=== PATIENT | female | born 1985 | race African-American/Black ===

== ENCOUNTER 2017-02-09 22:15 | Inpatient (IN) | payer OTHER ==
[2017-02-09] MEDS: DEXTROSE 5%-LACTATED RINGERS 1,000 ML IV SCH (23:00)
[2017-02-09] MEDS ORDERED: ELECTROLYTE-148 SOLN 1,000 ML IV SCH (23:15)
[2017-02-09 23:29] LABS: BASOPHIL 0.1 % (0-2.0); EOSINOPHIL 0.6 % (0-4.5); MCH 26.5 pg (25.7-33.7); MCHC 32.8 g/dl (32.0-36.0); MEAN CELL VOLUME 80.9 fl (80-96); MEAN PLT VOLUME 9.7 fl (7.5-11.1); PLATELET COUNT 157 K/MM3 (134-434); RDW 15.9 % (11.6-15.6); WHITE BLOOD COUNT 10.8 K/mm3 (4.0-10.0)
--- NOTE | 2017-02-09 23:36 | HP ---
Past Medical History - Admission Chief Complaint: patient is admitteed for induction of labor History of Present Illness: 31 y/o female edc 02/16/17 at 39 weeks gestation for induction of labor her antipartumcare was unremarkable History Source: Patient Limitations to Obtaining History: No Limitations - Past Medical History Cardiovascular: No: AFIB, Aneurysm, Aortic Insufficiency, Aortic Stenosis, CAD, CHF, Deep Vein Thrombosis, HTN, Hyperlipdemia, MN, Mitral Insufficiency, Mitral Stenosis, Murmur, Pulmonary Hypertension, Other Pulmonary: No: Asthma, Bronchitis, Cancer, COPD, O2 Dependent, Pneumonia, Previously Intubated, Pulmonary Embolus, Pulmonary Fibrosis, Sleep Apnea, Other Gastrointestinal: No: Ascites, Cancer, Constipation, Crohn's Disease, Diverticulitis, Diverticulosis, Esophageal Varices, Gastritis, GERD, GI Bleed, Hemorrhoids, Hiatal Hernia, Inflamatory Bowel Disease, Irritable Bowel Disease, Pancreatitis, Peptic Ulcer Disease, Ulcerative Colitis, Other Hepatobiliary: No: Cirrhosis, Cholelithiasis, Cholecystitis, Choledocholithiasis , Hepatitis A, Hepatitis B, Hepatitis C, Other Renal/: No: Renal Failure, Renal Inusuff, BPH, Cancer, Hematuria, Hemodialysis , Neurogenic Bladder, Renal Calculi, UTI, Other Reproductive: No: Ectopic , Endometriosis, Fibroids, PID, Polycystic Ovary Syndrome, Postmenopausal, Other ...: 6 ...Para: 4 ...Term: 4 ...: 0 ...Spon : 0 ...Induced : 1 ...Multiple Gestation: 0 ... Weeks Gestation by Dates: 39 ...EDC by Luis Alberto: 02/16/17 Heme/Onc: Yes: Anemia Infectious Disease: No: AIDS, C-Diff, Herpes Zoster, HIV, MRSA, STD's, Tuberculosis, VREF, Other Psych: Yes: Depression. No: Addictions, Anxiety, Bipolar, Panic, Psychosis, Schizophrenia, Other Musculoskeletal: No: Bursitis, Chronic low back pain, Hemiparesis, Hemiplegia, Osteoarthritis, Paraplegia, Other Rheumatology: No: Fibromyalgia, Gout, Lupus, Rheumatoid Arthritis, Sarcoidosis, Vasculitis, Other ENT: No: Allergic Rhinitis, Sinusitis, Other Endocrine: No: Marathon's Disease, Nba's Disease, Diabetes Insipidus, Diabetes Mellitus, Hyperparathyroidism, Hyperthyroidism, Hypothyroidism, Osteopenia, SIADH, Other Dermatology: No: Basal Cell, Cellulitis, Eczema, Melanoma, Psoriasis, Squamous Cell, Other - Past Surgical History Past Surgical History: No: None, AAA Repair, AICD, Amputation, Appendectomy, Arthrosocopy, AV Fistula/Graft, Bariatric Surgery, Breast Biopsy, Bypass, CABG, Carotid Endarterectomy, Cataract Removal, Cholecystectomy, Colectomy, Colonoscopy, Colostomy, Craniotomy, , Cystectomy, Hernia Repair, Hysterectomy, Ileal Conduit, Ileosotomy, Joint Replacement, Kidney Transplant, Laminectomy, Liver Transplant, Mastectomy, Nephrectomy, Oopherectomy, Orchiectomy, Permanent Pacemaker, Prostatectomy, Splenectomy, Stent, Thoracotomy , TURP, Tonsillectomy, Tubal Ligation, Upper Endoscopy, Valve Replacement, Vasectomy, Vein Stripping/Ligation Hx Myomectomy: No Hx Transabdominal Cerclage: No - Smoking History Smoking history: Never smoked Have you smoked in the past 12 months: No Aproximately how many cigarettes per day: 20 - Alcohol/Substance Use Hx Alcohol Use: No - Social History History of Recent Travel: No Home Medications - Allergies Allergies/Adverse Reactions: Allergies Allergy/AdvReac Type Severity Reaction Status Date / Time Penicillins Allergy Mild Hives Verified 01/03/15 16:28 - Home Medications Home Medications: Ambulatory Orders Vit/Iron Fumarate/FA [ Tablet] 1 tab PO DAILY 01/03/15 Ferrous Sulfate [Feosol] 325 mg PO TID 12/07/16 Review of Systems - Review of Systems Constitutional: denies: No Symptoms, Chills, Diaphoresis, Fever, Lethargy, Loss of Appetite, Malaise, Night Sweats, Unintentional Wgt. Loss, Weakness, Other Eyes: denies: No Symptoms, Blind Spots, Blurred Vision, Double Vision, Eye Pain , Floaters, Photophobia, Recent Change in Vision, Other HENT: denies: No Symptoms, Difficult Swallowing, Ear Discharge, Ear Pain, Epistaxis, Gingival Bleeding, Hearing Loss, Mouth Swelling, Nasal Congestion, Ocular Prosthesis, Throat Pain, Toothache, Ringing in Ears, Other Neck: denies: No Symptoms, Decreased ROM, Lumps, Pain on Movement, Stiffness, Swollen Glands, Tenderness, Other Respiratory: denies: No Symptoms, Cough, Exercise Intolerance, Hemoptysis, Orthopnea, PND, Snoring, SOB, SOB on Exertion, Wheezing, Other Gastrointestinal: denies: No Symptoms, Abdominal Pain, Bloating, Constipation, Diarrhea, Dysphagia, Indigestion, Melena, Nausea, Rectal Bleeding, Vomiting, Vomiting Blood, Other Genitourinary: denies: No Symptoms, Burning, Discharge, Dysuria, Flank Pain, Frequency, Hematuria, Incontinence, Lesions, Menses, Pain, Testicular Mass, Testicular Pain, Testicular Swelling, Urgency, Vaginal Bleeding, Other Breasts: denies: No Symptoms Reported, See HPI, Breast Implants, Discharge from Nipple, Lumps, Pain, Skin Changes, Other Musculoskeletal: denies: No Symptoms, Back Pain, Crepitus, Decreased ROM, Extremity Pain, Joint Pain, Joint Swelling, Muscle Pain, Muscle Cramps, Muscle Weakness, Other Neurological: denies: No Symptoms, Change in LOC, Change in Speech, Confusion, Dizziness, Headache, Incoordination, Numbness, Parasthesia, Pre-Existing Deficit , Seizure, Syncope, Tremors, Unsteady Gait, Weakness, Other Endocrine: denies: No Symptoms, Excessive Sweating, Flushing, Increased Hunger, Increased Thirst, Intolerance to Cold, Intolerance to Heat, Unexplained Weight Gain, Unexplained Weight Loss, Other Hematology/Lymphatic: denies: No Symptoms, Easily Bruised, Excessive Bleeding, Swollen Glands, Other Psychiatric: denies: No Symptoms, Altered Sleep Pattern, Anxiety, Depression, Hallucinations, Panic, Paranoia, Suicidal, Other Physical Exam - Maternity Constitutional: Yes: Well Nourished, No Distress, Calm Eyes: Yes: WNL, Conjunctiva Clear HENT: Yes: WNL, Atraumatic, Normocephalic Neck: Yes: WNL, Supple Cardiovascular: Yes: WNL, Regular Rate and Rhythm Lungs: Normal air movement Breast(s): Yes: WNL - Abdominal Exam/OB Number of Fetuses: Single Presentation: Vertex Contractions: No Monitor Mode: External Heart Rate (range): 140bpm Heart Rate Location: [facility] Category: I Accelerations: Uniform Decelerations: None - Vaginal Exam/OB Vaginal Bleediing: No Speculum Exam: No Amniotic Membrane Status: Intact Presentation: Vertex/Position Station: -1 - Physical Exam Musculoskeletal: Yes: WNL Extremities: Yes: WNL Edema: No Integumentary: Yes: WNL Deep Tendon Reflex Grade: Normal +2 ...Motor Strength: WNL Psychiatric: Yes: WNL, Alert, Oriented Assessment/Plan iup at 39 weeks for induction of labor tracing is wnl
[2017-02-09 23:42] LABS: INR 0.98 (0.82-1.09); PROTHROMBIN TIME (PATIENT) 10.8 SEC (9.98-11.88)
[2017-02-09 23:45] LABS: ACTIVATED PTT 25.9 SECONDS (26.9-34.4)
[2017-02-09 23:50] LABS: CALCIUM 8.3 mg/dL (8.5-10.1); CREATININE 0.7 mg/dL (0.55-1.02)
[2017-02-10 00:58] VITALS: BMI 33.9
[2017-02-10] MEDS ORDERED: DINOPROSTONE 10 MG VAGINAL SUPPOSITORY VG ONE (01:30)
[2017-02-10] MEDS: DEXTROSE 5%-LACTATED RINGERS 1,000 ML IV SCH (05:00)
[2017-02-10] MEDS ORDERED: OXYTOCIN 15 UNITS/ LR 250 ML 250 ML IVPB SCH (11:45)
[2017-02-10] MEDS ORDERED: BISACODYL 10 MG SUPP.RECT RC PRN (14:46)
[2017-02-10] MEDS ORDERED: BENZOCAINE 28 GM HEMORRHOIDAL OINTMENT TP PRN (14:46)
[2017-02-10] MEDS ORDERED: METHYLERGONOVINE MALEATE 0.2 MG/1 ML AMP IM PRN (14:46)
[2017-02-10] MEDS ORDERED: WITCH HAZEL 50% (TUCKS) 40 PAD/JAR PAD TP PRN (14:46)
[2017-02-10] MEDS ORDERED: BENZOCAINE 20% 57 GM BOTTLE TP PRN (14:46)
--- NOTE | 2017-02-10 14:52 | PN ---
Delivery - Delivery Vaginal Delivery: Spontaneous Type of Anesthesia: Local, None Episiotomy/Laceration: None EBL (cc): 300 Delivery, Single - Stages of Labor Date 1st Stage Initiatied: 02/10/17 Time 1st Stage Initiated: 11:00 Date 2nd Stage Initiated: 02/10/17 Time 2nd Stage Initiated: 14:20 Date of Delivery: 02/10/17 Time of Delivery: 14:22 Time Placenta Delivered: 14:30 - Condition of Field Crew Chief/Hvac Refrigeration Technician Present: No Gender: Male Position: Left, OA Total Hours ROM (Hrs/Mins): 10M - 1 Minute Total Score: 9 5 Minutes Total Score: 9 - [place] Feeding Plan Initial Plan: Elected not to breastfeed exclusively throughout hospitalization Remarks - Remarks Remarks: Normal spontaneous vaginal delivery of a live infant boy over intact perineum. Nose / Oropharynx suctioned @ perineum. Cord clamped and cut. Placenta expelled spontaneously intact.
--- NOTE | 2017-02-10 14:55 | DS ---
Physical Exam-MILLING MACHINE TENDER Vital Signs: Vital Signs Temperature 97.7 F 02/10/17 11:00 Pulse Rate 75 02/10/17 12:00 Respiratory Rate 20 02/10/17 12:00 Blood Pressure 129/64 02/10/17 12:00 O2 Sat by Pulse Oximetry (%) Constitutional: Yes: Well Nourished Eyes: Yes: Conjunctiva Clear HENT: Yes: Atraumatic Neck: Yes: Supple, Trachea Midline Cardiovascular: Yes: Regular Rate and Rhythm Respiratory: Yes: Regular, CTA Bilaterally Gastrointestinal: Yes: Normal Bowel Sounds Vaginal Exam: Yes: Normal Cervix: Yes: Normal Uterus: Yes: Normal ....Post : Yes: Uterus firm Neurological: Yes: Alert, Oriented ...Motor Strength: WNL Psychiatric: Yes: Alert, Oriented Labs: CBC, BMP 02/09/17 23:10 02/09/17 23:10 Delivery - Delivery Vaginal Delivery: Spontaneous Type of Anesthesia: Local, None Episiotomy/Laceration: None EBL (cc): 300 Delivery, Single - Stages of Labor Date 1st Stage Initiatied: 02/10/17 Time 1st Stage Initiated: 11:00 Date 2nd Stage Initiated: 02/10/17 Time 2nd Stage Initiated: 14:20 Date of Delivery: 02/10/17 Time of Delivery: 14:22 Time Placenta Delivered: 14:30 - Condition of Catalyst Manufacturing Operator/Front End Engineer Present: No Gender: Male Position: Left, OA Total Hours ROM (Hrs/Mins): 10M - 1 Minute Total Score: 9 5 Minutes Total Score: 9 - Feeding Plan Initial Plan: Elected not to breastfeed exclusively throughout hospitalization Discharge Summary Reason For Visit: INDUCTION OF LABOR Labor Procedures: Principal: Normal spontaneous vaginal delivery Hospital Course: Routine care Condition: Good - Instructions Diet, Activity, Other Instructions: Regular diet No sexual intercourse, no douching x 6 weeks Disposition: HOME - Home Medications Comprehensive Discharge Medication List: Ambulatory Orders Vit/Iron Fumarate/FA [ Tablet] 1 tab PO DAILY 01/03/15 Ferrous Sulfate [Feosol] 325 mg PO TID 12/07/16
[2017-02-10] MEDS ORDERED: D5W-LR W/ 20 UNITS OXYTOCIN 1,000 ML IV SCH (15:00)
[2017-02-10] MEDS: IBUPROFEN 600 MG TABLET (FP) PO PRN (15:00)
[2017-02-10] MEDS: FERROUS SO4 325 MG TABLET (FP) PO SCH (16:43)
[2017-02-10] MEDS: POTASSIUM CHLORIDE TABS 20 MEQ TABLET.ER (FP) PO SCH (16:43)
[2017-02-11] MEDS: IBUPROFEN 600 MG TABLET (FP) PO PRN ×3 (00:26→20:45)
[2017-02-11] MEDS: ACETAMINOPHEN 325 MG TABLET (FP) PO PRN ×3 (00:26→20:44)
--- NOTE | 2017-02-11 07:00 | PN ---
Post Note - Post Date of Delivery: 02/10/17 Post Day: 1 Vital Signs: Vital Signs - 24 hr 02/10/17 02/10/17 02/10/17 08:00 09:00 10:00 Temperature 97.8 F 98.1 F Pulse Rate 87 86 89 Respiratory 20 20 20 Rate Blood Pressure 138/73 122/60 122/68 02/10/17 02/10/17 02/10/17 11:00 12:00 14:40 Temperature 97.7 F Pulse Rate 91 H 75 89 Respiratory 20 20 20 Rate Blood Pressure 115/64 129/64 138/87 02/10/17 02/10/17 02/10/17 14:55 15:00 15:25 Temperature Pulse Rate 86 84 74 Respiratory 20 20 20 Rate Blood Pressure 130/65 129/72 125/85 02/10/17 02/10/17 02/11/17 16:10 20:00 00:00 Temperature 97.8 F 98 F 98.1 F Pulse Rate 81 90 84 Respiratory 20 18 18 Rate Blood Pressure 129/73 127/75 119/72 02/11/17 04:00 Temperature 98.8 F Pulse Rate 83 Respiratory 18 Rate Blood Pressure 99/54 Labs: Laboratory Results - last 24 hr 02/09/17 23:10 RPR Titer Nonreactive - Subjective Subjective: No Complaints - Objective Afebrile: Yes Breast: Not engorged Abdomen: Soft, Non-tender Uterus: Fundus firm Vagina: Scant lochia Extremities: Non-tender - Assessment/Plan (1) Vaginal delivery Assessment: S/P Normal Plan: Routine Care
[2017-02-11 08:57] LABS: BASOPHIL 0.3 % (0-2.0); EOSINOPHIL 1.5 % (0-4.5); MCH 26.5 pg (25.7-33.7); MCHC 32.7 g/dl (32.0-36.0); MEAN CELL VOLUME 81.3 fl (80-96); MEAN PLT VOLUME 9.4 fl (7.5-11.1); NEUTROPHILS 68.9 % (42.8-82.8); PLATELET COUNT 123 K/MM3 (134-434); RDW 16.1 % (11.6-15.6); WHITE BLOOD COUNT 10.8 K/mm3 (4.0-10.0)
[2017-02-11] MEDS: POTASSIUM CHLORIDE TABS 20 MEQ TABLET.ER (FP) PO SCH (09:15)
[2017-02-11] MEDS: PRENATAL VITAMINS W/ FOLIC ACID TABLET (FP) PO SCH (09:15)
[2017-02-11] MEDS: FERROUS SO4 325 MG TABLET (FP) PO SCH ×3 (09:15→16:50)
[2017-02-11 20:36] VITALS: TEMP 98
[2017-02-11] MEDS ORDERED: SENNOSIDES/DOCUSATE COMBO (SENNA PLUS) TABLET (UD) PO PRN (22:00)
[2017-02-12] MEDS: FERROUS SO4 325 MG TABLET (FP) PO SCH ×2 (07:58→12:36)
[2017-02-12 08:21] VITALS: BP 127/79; PULSE 81
[2017-02-12] MEDS: PRENATAL VITAMINS W/ FOLIC ACID TABLET (FP) PO SCH (09:17)
[2017-02-12] MEDS: POTASSIUM CHLORIDE TABS 20 MEQ TABLET.ER (FP) PO SCH (09:25)
== END 2017-02-12 13:30 | disposition home or self-care (01) | DRG 560 ==
LOC: JLDR 22:15 → J3W 02-10 16:00
PROVIDERS: ADMIT Obstetrics & Gynecology; ATTEND Obstetrics & Gynecology
PROC: 10E0XZZ Delivery of Products of Conception, External Approach (ICD-10-PCS; principal; 2017-02-10)
DX: O80 Encounter for full-term uncomplicated delivery (principal); Z3A.39 39 weeks gestation of pregnancy; Z37.0 Single live birth
CPT/HCPCS: 36415; 59409; 80048; 85025; 85610; 85730; 86593; 86850; 86900; 86901

== ENCOUNTER 2017-12-18 06:30 | Day surgery (SDC) | payer OTHER ==
[2017-12-14 13:07] VITALS: BMI 31.8
--- NOTE | 2017-12-18 08:06 | OP ---
Operative Note - Note: Operative Date: 12/18/17 Pre-Operative Diagnosis: Cervical dysplasia Operation: Loop Electrode Excisional Procedure Findings: No lesions on cervix Post-Operative Diagnosis: Same as Pre-op Surgeon: Kanika Waller Anesthesia: General Specimens Removed: Portion of the cervix Estimated Blood Loss (mls): 700 Operative Report Dictated: Yes
--- NOTE | 2017-12-18 08:06 | HP ---
Admitting History and Physical - Admission Chief Complaint: Abnormal Pap smear History of Present Illness: 32 yo Para 5 with cervical dysplasia, is pre op fpr LEEP. History Source: Patient Limitations to Obtaining History: No Limitations - Past Medical History ...LMP: 12/02/17 ...: No Heme/Onc: Yes: Anemia Psych: Yes: Depression. No: Addictions, Anxiety, Bipolar, Panic, Psychosis, Schizophrenia, Other - Past Surgical History Past Surgical History: Yes: None - Smoking History Smoking history: Never smoked Have you smoked in the past 12 months: No Aproximately how many cigarettes per day: 20 - Alcohol/Substance Use Hx Alcohol Use: Yes (wine socially) - Social History History of Recent Travel: No Home Medications - Allergies Allergies/Adverse Reactions: Allergies Allergy/AdvReac Type Severity Reaction Status Date / Time Penicillins Allergy Mild Hives Verified 12/18/17 06:33 - Home Medications Home Medications: Ambulatory Orders NK [No Known Home Medication] 12/14/17 Family Disease History - Family Disease History Family History: Unremarkable Review of Systems - Review of Systems Constitutional: reports: No Symptoms Eyes: reports: No Symptoms HENT: reports: No Symptoms Neck: reports: No Symptoms Cardiovascular: reports: No Symptoms Respiratory: reports: No Symptoms Gastrointestinal: reports: No Symptoms Genitourinary: reports: No Symptoms Breasts: reports: No Symptoms Reported Musculoskeletal: reports: No Symptoms Integumentary: reports: No Symptoms Neurological: reports: No Symptoms Endocrine: reports: No Symptoms Hematology/Lymphatic: reports: No Symptoms Psychiatric: reports: No Symptoms Pain Intensity: 0 Physical Examination Vital Signs: Vital Signs Temperature 99.0 F 12/18/17 06:48 Pulse Rate 80 12/18/17 06:48 Respiratory Rate 18 12/18/17 06:48 Blood Pressure 127/83 12/18/17 06:48 O2 Sat by Pulse Oximetry (%) 100 12/18/17 06:49 Constitutional: Yes: Well Nourished Eyes: Yes: Conjunctiva Clear HENT: Yes: Atraumatic Neck: Yes: Supple Cardiovascular: Yes: Regular Rate and Rhythm Respiratory: Yes: Regular, CTA Bilaterally Gastrointestinal: Yes: Normal Bowel Sounds Musculoskeletal: Yes: WNL Neurological: Yes: Alert, Oriented ...Motor Strength: WNL Psychiatric: Yes: Alert, Oriented Problem List - Problems (1) Cervical dysplasia Code(s): N87.9 - DYSPLASIA OF CERVIX UTERI, UNSPECIFIED Assessment/Plan Cervical dysplasia Pre op for LEEP Consent signed Anesthesia to see patient
[2017-12-18] MEDS ORDERED: oxyCODONE HCL 5 MG TABLET PO PRN (09:22)
[2017-12-18] MEDS ORDERED: PROMETHAZINE HCL 25 MG/1 ML VIAL IVPUSH PRN (09:22)
[2017-12-18] MEDS ORDERED: ONDANSETRON 4 MG/2 ML VIAL IVPUSH PRN (09:22)
[2017-12-18] MEDS ORDERED: LACTATED RINGERS SOLUTION 1,000 ML IV SCH (09:30)
[2017-12-18 10:34] VITALS: TEMP 98.2
--- NOTE | 2017-12-18 11:08 | OP ---
DATE OF OPERATION: 12/18/2017 PREOPERATIVE DIAGNOSIS: Cervical dysplasia. POSTOPERATIVE DIAGNOSIS: Cervical dysplasia. PROCEDURE: Loop electrode excisional procedure. SURGEON: Kanika Waller MD ANESTHESIA: General by LMA. COMPLICATIONS: None. ESTIMATED BLOOD LOSS: 700 mL. DESCRIPTION OF PROCEDURE: Patient was taken to the operating room, where general anesthesia was administered. Patient was then placed in lithotomy position. She was then prepped and draped in proper sterile fashion. The perineum was prepped with 3% acetic acid. A speculum was placed in the vagina. A suture was placed on the anterior lip of the cervix as a marker. Then, the vagina and cervix were painted with Lugol solution. The loop electrode was used to excise portion of the cervix, leaving the suture at 12 o 'clock position. There was significant amount of bleeding. Hemostasis obtained using monsel's solution. Few sutures were placed over the cervix to control bleeding. When finished, the instruments were removed. The patient was taken out of lithotomy position. She was taken to PACU in stable condition. PATHOLOGY: Portion of the cervix. Krystal [id number] MTDD
[2017-12-18 12:38] VITALS: BP 118/69; PULSE 78
--- NOTE | 2017-12-19 14:22 | PATH ---
Surgical Pathology Report Patient Name: ISELA ANTHONY [facility]. Rec. #: [id number] /Age/Gender: 1985 (Age: 32) / F Account: [id number] Location: [facility] SUR[facility]ICAL Taken: 12/18/2017 Received: 12/18/2017 Reported: 12/19/2017 Physicians: Kanika Waller M.D. Specimen(s) Received PORTION OF CERVICAL STITCH AT 12 OCLOCK Clinical History Cervical dysplasia Final Diagnosis CERVIX, LOOP ELECTROSURGICAL EXCISION PROCEDURE (LEEP): CERVICAL SQUAMOUS AND ENDOCERVICAL MUCOSA WITH HIGH GRADE SQUAMOUS INTRAEPITHELIAL LESION (CERVICAL INTRAEPITHELIAL NEOPLASIA 3 (BRIONNA 3) INVOLVING QUADRANTS 12:00-3, 6:00-9, AND 9:00-12. AREAS OF LOW GRADE SQUAMOUS INTRAEPITHELIAL LESION ALSO PRESENT. SURGICAL RESECTION MARGINS: NEGATIVE FOR HIGH GRADE DYSPLASIA. TRANSFORMATION ZONE: PRESENT. CHANGES OF PRIOR BIOPSY PRESENT. Electronically Signed Patience Matias M.D. Gross Description Received in formalin labelled "portion of cervix stitch michelle 12:00" is a 3.2 x 2.5 x 0.7 cm portion of kohler mucosa consistent with a cervical cone excision which has been previously opened. A suture dixon the 12 o'clock position. The margin is inked. The specimen is sectioned and totally submitted in 8 cassettes as follows: 1 and 2-12:00 through 3:00; 3 and 4-3:00 through 6:00; 5 and 6-6:00 through 9:00; 7 and 8-9:00 through 12:00. [facility]/12/18/2017 [facility]/12/18/2017
== END 2017-12-18 13:15 | disposition home or self-care (01) ==
LOC: JASU-SURG 06:30
PROVIDERS: ATTEND Obstetrics & Gynecology
PROC: 0UBC7ZX Excision of Cervix, Via Natural or Artificial Opening, Diagnostic (ICD-10-PCS; principal; 2017-12-18 08:00)
DX: D06.9 Carcinoma in situ of cervix, unspecified (principal)
CPT/HCPCS: 86850; 86900; 86901; 86922; 88307-TC; 94760

== ENCOUNTER 2017-12-18 14:44 | Emergency (ER) | payer OTHER ==
[2017-12-18 14:49] VITALS: TEMP 97.6; BMI 31.8
--- NOTE | 2017-12-18 14:49 | PDOC ---
Rapid Medical Evaluation Chief Complaint: Vaginal Bleeding Medical Evaluation: Allergies Allergy/AdvReac Type Severity Reaction Status Date / Time Penicillins Allergy Mild Hives Verified 12/18/17 14:45 12/18/17 14:45 I have performed a brief in-person evaluation of this patient. The patient presents with a chief complaint of: significant bleeding s/p LEEP this am, "went through all my clothes and all over the bathroom floor", "I feel dizzy, lightheaded", +palpitations, MD Waller surgeon Pertinent physical exam findings: unable to sit due to pain, diaphoretic, pale I have ordered the following: CBC, CMP, T&S, labs The patient will proceed to the ED for further evaluation. Discharge Disposition - Diagnosis Postoperative vaginal bleeding - Referrals Referrals: Dany Reece [Primary Care Provider] - - Patient Instructions - Post Discharge Activity
[2017-12-18 15:12] LABS: BASO % 0.2 % (0-2.0); HEMOGLOBIN 10.8 GM/dL (10.7-15.3); MCH 25.6 pg (25.7-33.7); MCHC 32.7 g/dl (32.0-36.0); MEAN CELL VOLUME 78.2 fl (80-96); MEAN PLT VOLUME 8.9 fl (7.5-11.1); MONO % 3.2 % (3.8-10.2); NEUT % 76.6 % (42.8-82.8); PLATELET COUNT 229 K/MM3 (134-434); RBC 4.22 M/mm3 (3.60-5.2); RDW 14.7 % (11.6-15.6); WHITE BLOOD COUNT 4.8 K/mm3 (4.0-10.0)
[2017-12-18 15:35] LABS: ALBUMIN 3.9 g/dl (3.4-5.0); ALK PHOS 98 U/L (45-117); ANION GAP 9 (8-16); BILIRUBIN,TOTAL 0.3 mg/dL (0.2-1.0); BLOOD UREA NITROGEN 10 mg/dL (7-18); CALCIUM 8.5 mg/dL (8.5-10.1); CHLORIDE 103 mmol/L (98-107); CO2 23 mmol/L (21-32); CREATININE 0.9 mg/dL (0.55-1.02); GLUCOSE,RANDOM 174 mg/dL (74-106); POTASSIUM 4.4 mmol/L (3.5-5.1); SGOT/AST 8 U/L (15-37); SGPT/ALT 15 U/L (12-78); SODIUM 135 mmol/L (136-145); TOT PROT 7.2 g/dl (6.4-8.2)
--- NOTE | 2017-12-18 15:36 | PDOC ---
Attending Attestation - Resident Resident Name: Ana MaríaTino - ED Attending Attestation I have performed the following: I have examined & evaluated the patient, The case was reviewed & discussed with the resident, I agree w/resident's findings & plan, Exceptions are as noted - HPI HPI: 12/18/17 15:29 32y F hx of cervical dysplasia s/p LEEP today presents with increased lower eabdominal pain and bleeding, soaking through her pads. Pt endorses feeling lightheaded, fatigued, dneies any cp vtitals reveal tachycardia to 125 with normal BP on arrival pts exam pale cardiac rrr, no mrg pulm: cta b/l abd soft nontender pelvic exam reeals some blood in the vault, oozing. not a signficant bleed plan to obtain cbc will dw dr. claros regarding disposition - Physicial Exam PE: 12/20/17 11:39 see above - Medical Decision Making 12/20/17 11:39 see above
[2017-12-18 15:52] LABS: INR 1.04 (0.82-1.09); PROTHROMBIN TIME (PATIENT) 11.8 SEC (9.98-11.88)
--- NOTE | 2017-12-18 16:27 | PDOC ---
History of Present Illness - General Chief Complaint: Vaginal Bleeding Stated Complaint: POST OP SURGERY PAIN Time Seen by Provider: 12/18/17 14:59 - History of Present Illness Initial Comments: 12/18/17 19:14 The patient is a 32 year old female who presents for evaluation of vaginal bleeding following a leep procedure earlier today. The patient reports that she underwent a leep procedure performed by Dr. Waller today and since being at home, she had experienced significant vaginal bleeding soaking through her pad and clothes. She noted passing a large clot in the bathroom with bleeding prompting her presentation to the ED for evaluation. She also endorses some crampy lower abdominal pain as well. She notes some lightheadedness and fatigue , but otherwise denies fevers, chills, SOB, chest pain, nausea, vomiting, or changes with urination or bowel movements. Past History - Past Medical History Allergies/Adverse Reactions: Allergies Allergy/AdvReac Type Severity Reaction Status Date / Time Penicillins Allergy Mild Hives Verified 12/18/17 14:45 Home Medications: Ambulatory Orders NK [No Known Home Medication] 12/14/17 Anemia: No Asthma: No Cancer: No Cardiac Disorders: No CVA: No COPD: No CHF: No Dementia: No Diabetes: No GI Disorders: No Disorders: No HTN: No Hypercholesterolemia: No Kidney Stones: Yes Liver Disease: No Seizures: No Thyroid Disease: No - Suicide/Smoking/Psychosocial Hx Smoking Status: Yes Smoking History: Never smoked Have you smoked in the past 12 months: No Number of Cigarettes Smoked Daily: 20 Information on smoking cessation initiated: No Hx Alcohol Use: Yes (wine socially) Drug/Substance Use Hx: No Substance Use Type: None Hx Substance Use Treatment: No Review of Systems - Review of Systems Comments:: 12/18/17 19:17 Constitutional: Fatigue. No fevers, chills, malaise HEENT: No Rhinorrhea, nasal congestion, visual changes Cardiovascular: Lightheadedness. No chest pain, syncope, palpitations, Respiratory: No Cough, SOB, Hemoptysis, Gastrointestinal: Lower abdominal pain. No Nausea, Vomiting, Constipation, Diarrhea, Melena Genitourinary: Vaginal bleeding. No Dysuria, Frequency, Urgency, Hesitancy, Hematuria, Flank pain Musculoskeletal: No Myalgia, arthralgia Skin: No rashes, itching, bruising, pallor Neurologic: No Headache, Dizziness, Numbness, Weakness, or Tingling Psychiatric: No Hallucinations. No SI or HI *Physical Exam - Vital Signs Last Vital Signs Temp Pulse Resp BP Pulse Ox 97.6 F 125 H 18 134/85 100 12/18/17 14:45 12/18/17 14:45 12/18/17 14:45 12/18/17 14:45 12/18/17 14:45 - Physical Exam Comments: 12/18/17 19:18 General Appearance: Nourished. No Apparent Distress HEENT: EOMI, [place]. No Pharyngeal Erythema, Tonsillar Exudate, Tonsillar Erythema Neck: No Cervical Lymphadenopathy Respiratory/Chest: Lungs Clear, Normal Breath Sounds. No Crackles, Rales, Rhonchi, Wheezing Cardiovascular: Regular Rhythm, Regular Rate. No Murmur, Gallops, Rubs Gastrointestinal/Abdominal: Normal Bowel Sounds, Soft. Mild diffuse lower abdominal tenderness to palpation. No Guarding, Rebound, Vaginal Exam: Normal external exam. Two large clots noted on pelvic exam with blood in the vaginal vault. No brisk bleeding noted on exam. Closed cervical os Musculoskeletal: No CVA Tenderness Extremity: Normal Capillary Refill Integumentary: Normal Color, Dry, Warm Neurologic: Fully Oriented, Alert, Normal Mood/Affect, Normal Response, ED Treatment Course - LABORATORY CBC & Chemistry Diagram: 12/18/17 15:04 12/18/17 15:07 - ADDITIONAL ORDERS Additional order review: Laboratory Results 12/18/17 12/18/17 12/18/17 15:07 15:07 15:04 PT with INR 11.80 INR 1.04 Sodium 135 L Potassium 4.4 Chloride 103 Carbon Dioxide 23 Anion Gap 9 BUN 10 Creatinine 0.9 Creat Clearance w eGFR > 60 Random Glucose 174 H Calcium 8.5 Total Bilirubin 0.3 AST 8 L ALT 15 Alkaline Phosphatase 98 Total Protein 7.2 Albumin 3.9 Blood Type O POSITIVE Antibody Screen Negative 12/18/17 15:04 RBC 4.22 MCV 78.2 L MCHC 32.7 RDW 14.7 MPV 8.9 Neutrophils % 76.6 D Lymphocytes % 20.0 D Monocytes % 3.2 L Eosinophils % 0.0 D Basophils % 0.2 Medical Decision Making - Medical Decision Making 12/18/17 19:20 The patient is a 32 year old female who presents for evaluation of vaginal bleeding following a leep procedure earlier today. Given the patient's physical exam and history, we will obtain a cbc, cmp to evaluate for anemia or any other metabolic derangement. The patient appears stable on exam currently. We will contact Dr. Waller to obtain her consultation. We will continue to monitor and reassess. 12/18/17 19:21 CBC, cmp are unremarkable. We discussed the case with Dr. Waller who will see the patient in clinic on . We are comfortable discharging the patient home at this time with follow up with Dr. Waller and have discussed return precautions with the patient. She voiced understanding and is agreeable with the plan. *DC/Admit/Observation/Transfer Diagnosis at time of Disposition: Postoperative vaginal bleeding - Discharge Dispostion Disposition: HOME Condition at time of disposition: Good Admit: No - Referrals Referrals: Dany Reece [Primary Care Provider] - Kanika Waller MD [Staff Physician] - - Patient Instructions Printed Discharge Instructions: DI for Vaginal Bleeding Additional Instructions: Please return to the ER if you experience concerning or worsening symptoms including worsening bleeding, pain, vomiting, or fevers. Your lab results were normal here in the ER. We discussed your case with Dr. Waller who will see you in her clinic on 12/20/17 at her [facility] office. Please keep that appointment and you may call for any concerns that you may have. - Post Discharge Activity
[2017-12-18 18:59] VITALS: BP 114/68; PULSE 72
== END 2017-12-18 19:44 | disposition home or self-care (01) ==
LOC: JER 14:44
DX: N99.820 Postprocedural hemorrhage of a genitourinary system organ or structure following a genitourinary system procedure (principal)
CPT/HCPCS: 36415; 80053; 85025; 85610; 86850; 86900; 86901; 99282-25

== ENCOUNTER 2019-12-29 18:14 | Emergency (ER) | payer OTHER ==
[2019-12-29 18:18] VITALS: BP 154/89; PULSE 91; TEMP 98; BMI 30.7
--- NOTE | 2019-12-29 18:18 | PDOC ---
Rapid Medical Evaluation Medical Evaluation: Allergies Allergy/AdvReac Type Severity Reaction Status Date / Time Penicillins Allergy Mild Hives Verified 12/18/17 14:45 I have performed a brief in-person evaluation of this patient. The patient presents with a chief complaint of: hematuria from today; denies fever, dysuria; has mild lower abd/back pain; states it is not vaginal bleeding Pertinent physical exam findings: In NAD I have ordered the following: urine The patient will proceed to the ED for further evaluation. 12/29/19 18:17
--- NOTE | 2019-12-29 20:16 | PDOC ---
History of Present Illness - General Chief Complaint: Hematuria Stated Complaint: BLOOD IN URINE Time Seen by Provider: 12/29/19 18:16 - History of Present Illness Initial Comments: 12/29/19 20:14 34-year-old female without comorbidities presents for urinary frequency urgency and one episode of hematuria which started today. No systemic symptoms no associated pain or dysuria Past History - Past Medical History Allergies/Adverse Reactions: Allergies Allergy/AdvReac Type Severity Reaction Status Date / Time Penicillins Allergy Mild Hives Verified 12/29/19 18:18 Home Medications: Ambulatory Orders NK [No Known Home Medication] 12/14/17 Anemia: No Asthma: No Cancer: No Cardiac Disorders: No CVA: No COPD: No CHF: No Dementia: No Diabetes: No GI Disorders: No Disorders: No HTN: No Hypercholesterolemia: No Kidney Stones: Yes Liver Disease: No Seizures: No Thyroid Disease: No - Psycho Social/Smoking Cessation Hx Smoking Status: Yes Smoking History: Never smoked Have you smoked in the past 12 months: No Number of Cigarettes Smoked Daily: 20 Hx Alcohol Use: Yes (wine socially) Drug/Substance Use Hx: No Substance Use Type: None Hx Substance Use Treatment: No Review of Systems - Review of Systems Constitutional: No: Chills, Diaphoresis, Fever, Malaise, Night Sweats ABD/GI: No: Constipated, Diarrhea, Nausea, Vomiting : Yes: Frequency, Hematuria. No: Burning, Dysuria, Flank Pain, Incontinence, Pain, Urgency Musculoskeletal: No: Back Pain *Physical Exam - Vital Signs Last Vital Signs Temp Pulse Resp BP Pulse Ox 98 F 91 H 18 154/89 98 12/29/19 18:15 12/29/19 18:15 12/29/19 18:15 12/29/19 18:15 12/29/19 18:15 - Physical Exam 12/29/19 20:15 GENERAL: The patient is awake, alert, and fully oriented, in no acute distress. HEAD: Normal with no signs of trauma. NEUROLOGICAL: Cranial nerves II through XII grossly intact. PSYCH: Normal mood, normal affect. SKIN: Warm, Dry, normal turgor, no rashes or lesions noted. Medical Decision Making - Medical Decision Making 12/29/19 22:35 No stone. Follow-up with urology for hematuria. Patient advised of cyst on CAT scan and the need for follow-up Discharge - Discharge Information Problems reviewed: Yes Clinical Impression/Diagnosis: Hematuria Condition: Stable Disposition: HOME - Admission No - Follow up/Referral Referrals: Dany Reece [Primary Care Provider] - Salvador Hernandez MD [Staff Physician] - - Patient Discharge Instructions Additional Instructions: Please return to the emergency room for worsening symptoms or if symptoms do not resolve within the next day or 2. Without fail follow-up with urology in the next 1 to 2 days. It is important for you to follow-up because of a finding of a cyst on your CAT scan. You do not appear to have a urinary tract infection today however a culture was sent on your urine and should you require antibiotics we will call you - Post Discharge Activity
[2019-12-29 20:27] LABS: EPI CELLS 8.8 /HPF (0-5/HPF); HYALINE CASTS 3 /lpf (0-8); PH,URINE 5.5 (5.0-8.0); URINE APPEARANCE CLOUDY; URINE BACTERIA 161.4 /hpf (NEGATIVE); URINE BILIRUBIN NEGATIVE (NEGATIVE); URINE COLOR YELLOW; URINE GLUCOSE (UA) NEGATIVE (NEGATIVE); URINE KETONE NEGATIVE (NEGATIVE); URINE LEUK ESTERASE NEGATIVE (NEGATIVE); URINE NITRITE NEGATIVE (NEGATIVE); URINE PROTEIN TRACE (NEGATIVE); URINE RBC 231 /hpf (0-4); URINE UROBILINOGEN 0.2 mg/dL (0.2-1.0); URINE WBC 8 /hpf (0-5)
== END 2019-12-29 22:45 | disposition home or self-care (01) ==
LOC: JERFT 18:14
DX: R31.9 Hematuria, unspecified (principal); Z88.0 Allergy status to penicillin
CPT/HCPCS: 74176-TC; 81003; 84703; 87086; 99284-25

== ENCOUNTER 2021-01-13 12:59 | Emergency (ER) | payer OTHER ==
[2021-01-13 13:09] VITALS: BP 112/75; PULSE 69; TEMP 98.6; BMI 31.1
[2021-01-13] MEDS ORDERED: KETOROLAC TROMETHAMINE 30 MG/1 ML VIAL IVPUSH ONE (14:02)
[2021-01-13] MEDS ORDERED: METOCLOPRAMIDE HCL INJECTION 10 MG/2 ML VIAL IVPUSH ONE (14:03)
[2021-01-13] MEDS ORDERED: SODIUM CHLORIDE 0.9% 500 ML INFUS.BAG IV ONE (14:03)
[2021-01-13] MEDS ORDERED: METOCLOPRAMIDE HCL INJECTION 10 MG/2 ML VIAL ONE (14:39)
[2021-01-13] MEDS ORDERED: KETOROLAC TROMETHAMINE 30 MG/1 ML VIAL ONE (14:39)
[2021-01-13 14:58] LABS: BASO % 0.3 % (0-2.0); EOS % 0.7 % (0-4.5); HEMATOCRIT 37.2 % (32.4-45.2); HEMOGLOBIN 11.9 GM/dL (10.7-15.3); LYMPH % 26.8 % (8-40); MCH 25.5 pg (25.7-33.7); MEAN CELL VOLUME 79.8 fl (80-96); MEAN PLT VOLUME 9.1 fl (7.5-11.1); MONO % 6.9 % (3.8-10.2); NEUT % 65.3 % (42.8-82.8); PLATELET COUNT 237 K/MM3 (134-434); RBC 4.67 M/mm3 (3.60-5.2); RDW 15.3 % (11.6-15.6); WHITE BLOOD COUNT 8.6 K/mm3 (4.0-10.0)
[2021-01-13 15:23] LABS: POTASSIUM 4.1 mmol/L (3.5-5.1)
[2021-01-13 15:25] LABS: BLOOD UREA NITROGEN 13.5 mg/dL (7-18); CALCIUM 9.6 mg/dL (8.5-10.1)
[2021-01-13 15:28] LABS: CREATININE 0.7 mg/dL (0.55-1.3)
[2021-01-13 15:30] LABS: BILIRUBIN,TOTAL 0.5 mg/dL (0.2-1); TOT PROT 7.4 g/dl (6.4-8.2)
== END 2021-01-13 16:10 | disposition home or self-care (01) ==
LOC: JER 12:59
PROC: 3E0333Z Introduction of Anti-inflammatory into Peripheral Vein, Percutaneous Approach (ICD-10-PCS; principal; 2021-01-13)
PROC: 3E033GC Introduction of Other Therapeutic Substance into Peripheral Vein, Percutaneous Approach (ICD-10-PCS; 2021-01-13)
DX: R51.9 Headache, unspecified (principal)
CPT/HCPCS: 36415; 70450-TC; 80053; 85025; 99284-25

== ENCOUNTER 2022-07-19 14:58 | Emergency (ER) | payer OTHER ==
[2022-07-19 15:53] VITALS: BP 126/77; PULSE 94; RESP 17; TEMP 98.7; BMI 30.9
[2022-07-19] MEDS ORDERED: SODIUM CHLORIDE 0.9% 500 ML INFUS.BAG IV ONE (17:32)
[2022-07-19] MEDS ORDERED: ACETAMINOPHEN 1000 MG/100 ML BAG IVPB ONE (17:32)
[2022-07-19] MEDS ORDERED: DEXAMETHASONE SOD PHOSPHATE 10 MG/1 ML VIAL IVPUSH ONE (17:32)
[2022-07-19] MEDS ORDERED: ACETAMINOPHEN INJECTION 100 ML IVPB ONE (17:33)
[2022-07-19] MEDS ORDERED: DEXAMETHASONE SOD PHOSPHATE 10 MG/1 ML VIAL ONE (17:34)
[2022-07-19] MEDS ORDERED: METOCLOPRAMIDE HCL INJECTION 10 MG/2 ML VIAL IVPUSH ONE (17:37)
[2022-07-19] MEDS ORDERED: METOCLOPRAMIDE HCL INJECTION 10 MG/2 ML VIAL ONE (18:16)
[2022-07-19 18:59] LABS: BASO % 0.5 % (0-2.0); EOS % 1.2 % (0-4.5); HEMATOCRIT 35.8 % (32.4-45.2); HEMOGLOBIN 11.8 GM/dL (10.7-15.3); LYMPH % 22.8 % (8-40); MCH 26.2 pg (25.7-33.7); MCHC 33.1 g/dl (32.0-36.0); MEAN CELL VOLUME 79.1 fl (80-96); MONO % 10.7 % (3.8-10.2); NEUT % 64.8 % (42.8-82.8); PLATELET COUNT 239 10^3/uL (134-434); RBC 4.52 M/mm3 (3.60-5.2); RDW 15.1 % (11.6-15.6); WHITE BLOOD COUNT 6.1 K/mm3 (4.0-10.0)
[2022-07-19 19:04] LABS: CHLORIDE 106 mmol/L (98-107); SODIUM 140 mmol/L (136-145)
[2022-07-19 19:06] LABS: CALCIUM 8.9 mg/dL (8.5-10.1)
[2022-07-19 19:07] LABS: ALBUMIN 3.8 g/dl (3.4-5.0); ANION GAP 8 MMOL/L (8-16); BLOOD UREA NITROGEN 6.2 mg/dL (7-18); CO2 26 mmol/L (21-32); GLUCOSE,RANDOM 83 mg/dL (74-106)
[2022-07-19 19:10] LABS: CREATININE 0.7 mg/dL (0.55-1.3); SGOT/AST 13 U/L (15-37); SGPT/ALT 18 U/L (13-61)
[2022-07-19 19:11] LABS: TOT PROT 7.4 g/dl (6.4-8.2)
[2022-07-19 19:12] LABS: BILIRUBIN,TOTAL 0.3 mg/dL (0.2-1)
[2022-07-19 19:13] LABS: ALK PHOS 104 U/L (45-117)
== END 2022-07-19 20:40 | disposition home or self-care (01) ==
LOC: JER 14:58
PROC: 3E0333Z Introduction of Anti-inflammatory into Peripheral Vein, Percutaneous Approach (ICD-10-PCS; principal; 2022-07-19)
PROC: 3E0333Z Introduction of Anti-inflammatory into Peripheral Vein, Percutaneous Approach (ICD-10-PCS; 2022-07-19)
PROC: 3E033GC Introduction of Other Therapeutic Substance into Peripheral Vein, Percutaneous Approach (ICD-10-PCS; 2022-07-19)
PROC: 3E033GC Introduction of Other Therapeutic Substance into Peripheral Vein, Percutaneous Approach (ICD-10-PCS; 2022-07-19)
DX: R00.2 Palpitations (principal)
CPT/HCPCS: 36415; 71046-TC-FY; 80053; 84484; 84703; 85025; 93005; 93010; 99285-25; J1100

== ENCOUNTER 2023-03-17 23:06 | Emergency (ER) | payer OTHER ==
[2023-03-17 23:23] VITALS: BP 124/85; PULSE 67; RESP 18; TEMP 98; BMI 29.8
== END 2023-03-18 01:42 | disposition home or self-care (01) ==
LOC: JER 23:06
DX: R05.9 Cough, unspecified (principal); R09.89 Other specified symptoms and signs involving the circulatory and respiratory systems; J06.9 Acute upper respiratory infection, unspecified; Z20.822 Contact with and (suspected) exposure to COVID-19
CPT/HCPCS: 0241U-QW; 87070; 87651; 99283-25

== ENCOUNTER 2023-04-15 01:31 | Emergency (ER) | payer OTHER ==
[2023-04-15 01:43] VITALS: RESP 18; BMI 30.7
[2023-04-15 03:24] LABS: BASO % 0.2 % (0-2.0); EOS % 0.5 % (0-4.5); HEMATOCRIT 35.8 % (32.4-45.2); HEMOGLOBIN 11.5 GM/dL (10.7-15.3); LYMPH % 11.5 % (8-40); MCH 24.9 pg (25.7-33.7); MCHC 32.1 g/dl (32.0-36.0); MEAN CELL VOLUME 77.7 fl (80-96); MEAN PLT VOLUME 8.8 fl (7.5-11.1); MONO % 6.9 % (3.8-10.2); NEUT % 80.9 % (42.8-82.8); PLATELET COUNT 223 10^3/uL (134-434); RBC 4.61 M/mm3 (3.60-5.2); WHITE BLOOD COUNT 15.8 K/mm3 (4.0-10.0)
[2023-04-15 03:36] LABS: INR 1.03 (0.83-1.09)
[2023-04-15 03:38] LABS: POTASSIUM 3.7 mmol/L (3.5-5.1)
[2023-04-15 03:39] LABS: ACTIVATED PTT 29.2 SECONDS (25.2-36.5); ALBUMIN 3.8 g/dl (3.4-5.0); BLOOD UREA NITROGEN 13.5 mg/dL (7-18); CALCIUM 9.3 mg/dL (8.5-10.1)
[2023-04-15 03:42] LABS: CREATININE 0.9 mg/dL (0.55-1.3)
[2023-04-15 03:44] LABS: BILIRUBIN,TOTAL 0.5 mg/dL (0.2-1)
[2023-04-15] MEDS ORDERED: ACETAMINOPHEN 1000 MG/100 ML BAG IVPB ONE (04:48)
[2023-04-15] MEDS ORDERED: ACETAMINOPHEN INJECTION 100 ML IVPB ONE (04:49)
[2023-04-15 05:50] VITALS: BP 107/74; PULSE 68; TEMP 98.2
[2023-04-15 06:33] LABS: THROAT:GRP A STREP NOT DETECTED (NOTDETECTED)
== END 2023-04-15 06:00 | disposition home or self-care (01) ==
LOC: JER 01:31
PROC: 3E033NZ Introduction of Analgesics, Hypnotics, Sedatives into Peripheral Vein, Percutaneous Approach (ICD-10-PCS; principal; 2023-04-15)
DX: R07.9 Chest pain, unspecified (principal); R07.0 Pain in throat; Z20.822 Contact with and (suspected) exposure to COVID-19
CPT/HCPCS: 0241U-QW; 36415; 71046-TC-FY; 80053; 84484; 84703; 85025; 85610; 85730; 87070; 87651; 93005; 93010; 99285-25

== ENCOUNTER 2024-01-07 17:24 | Emergency (ER) | payer OTHER ==
[2024-01-07 17:35] VITALS: BP 137/89; PULSE 66; RESP 18; TEMP 98.8; BMI 30.3
[2024-01-07] MEDS ORDERED: ALBUTEROL SO4 2.5/IPRATROPIUM 0.5 INH SOL 3 ML VIAL.NEB. NEB ONE ×2 (18:10→19:35)
[2024-01-07] MEDS: ALBUTEROL SO4 2.5/IPRATROPIUM 0.5 INH SOL 3 ML VIAL.NEB. NEB ONE ×2 (18:22→19:39)
[2024-01-07] MEDS ORDERED: predniSONE 20 MG TABLET (UD) ONE (19:34)
[2024-01-07] MEDS ORDERED: FAMOTIDINE 20 MG TABLET ONE (19:35)
[2024-01-07] MEDS: predniSONE 20 MG TABLET (UD) PO ONE (19:39)
[2024-01-07] MEDS: FAMOTIDINE 20 MG TABLET PO ONE (19:39)
== END 2024-01-07 20:04 | disposition home or self-care (01) ==
LOC: JERFT 17:24
PROC: 3E0F7GC Introduction of Other Therapeutic Substance into Respiratory Tract, Via Natural or Artificial Opening (ICD-10-PCS; principal; 2024-01-07)
PROC: 3E0F7GC Introduction of Other Therapeutic Substance into Respiratory Tract, Via Natural or Artificial Opening (ICD-10-PCS; 2024-01-07)
DX: R06.02 Shortness of breath (principal); R05.9 Cough, unspecified; M79.10 Myalgia, unspecified site; R09.81 Nasal congestion; R63.0 Anorexia; R53.81 Other malaise; J06.9 Acute upper respiratory infection, unspecified; J40 Bronchitis, not specified as acute or chronic
CPT/HCPCS: 71046-TC-FY; 87651; 94640; 99284-25

== ENCOUNTER 2024-05-25 11:27 | Emergency (ER) | payer OTHER ==
[2024-05-25 11:38] VITALS: RESP 18; TEMP 98.4; BMI 32.9
[2024-05-25] MEDS ORDERED: ONDANSETRON *ODT* 4 MG TABLET ONE (13:20)
[2024-05-25] MEDS: ONDANSETRON *ODT* 4 MG TABLET SL ONE (13:25)
[2024-05-25 13:31] LABS: HCG,QUALITATIVE URINE Positive; PH,URINE 6.5 (5.0-8.0); URINE APPEARANCE CLEAR; URINE BILIRUBIN NEGATIVE (NEGATIVE); URINE COLOR YELLOW; URINE GLUCOSE (UA) NEGATIVE (NEGATIVE); URINE KETONE TRACE (NEGATIVE); URINE LEUK ESTERASE NEGATIVE (NEGATIVE); URINE NITRITE NEGATIVE (NEGATIVE); URINE PROTEIN NEGATIVE (NEGATIVE)
[2024-05-25 13:32] LABS: BASO % 0.2 % (0-2.0); EOS % 0.5 % (0-4.5); HEMATOCRIT 39.5 % (32.4-45.2); HEMOGLOBIN 13.1 GM/dL (10.7-15.3); LYMPH % 21.1 % (8-40); MCH 26.5 pg (25.7-33.7); MCHC 33.2 g/dl (32.0-36.0); MEAN CELL VOLUME 79.8 fl (80-96); MEAN PLT VOLUME 9.3 fl (7.5-11.1); MONO % 6.9 % (3.8-10.2); NEUT % 71.3 % (42.8-82.8); PLATELET COUNT 227 10^3/uL (134-434); RBC 4.95 M/mm3 (3.60-5.2); RDW 14.6 % (11.6-15.6); WHITE BLOOD COUNT 8.4 K/mm3 (4.0-10.0)
[2024-05-25 13:44] LABS: POTASSIUM 4.1 mmol/L (3.5-5.1)
[2024-05-25 13:46] LABS: CALCIUM 9.1 mg/dL (8.5-10.1)
[2024-05-25 13:47] LABS: ALBUMIN 3.9 g/dl (3.4-5.0); BLOOD UREA NITROGEN 8.2 mg/dL (7-18)
[2024-05-25] MEDS ORDERED: METOCLOPRAMIDE HCL INJECTION 10 MG/2 ML VIAL ONE (13:48)
[2024-05-25] MEDS ORDERED: ACETAMINOPHEN INJECTION 100 ML IVPB ONE (13:49)
[2024-05-25 13:50] LABS: CREATININE 0.6 mg/dL (0.55-1.3)
[2024-05-25 13:51] LABS: BILIRUBIN,TOTAL 0.5 mg/dL (0.2-1)
[2024-05-25 13:52] LABS: TOT PROT 7.6 g/dl (6.4-8.2)
[2024-05-25] MEDS: SODIUM CHLORIDE 1,000 ML IV STA (14:06)
[2024-05-25] MEDS: ACETAMINOPHEN 1000 MG/100 ML BAG IVPB ONE (14:07)
[2024-05-25] MEDS: METOCLOPRAMIDE HCL INJECTION 10 MG/2 ML VIAL IVPB ONE (14:42)
[2024-05-25 15:31] VITALS: BP 117/76; PULSE 78
== END 2024-05-25 15:48 | disposition home or self-care (01) ==
LOC: JER 11:27
PROC: 3E033NZ Introduction of Analgesics, Hypnotics, Sedatives into Peripheral Vein, Percutaneous Approach (ICD-10-PCS; principal; 2024-05-25)
PROC: 3E033GC Introduction of Other Therapeutic Substance into Peripheral Vein, Percutaneous Approach (ICD-10-PCS; 2024-05-25)
PROC: 3E0337Z Introduction of Electrolytic and Water Balance Substance into Peripheral Vein, Percutaneous Approach (ICD-10-PCS; 2024-05-25)
DX: R51.9 Headache, unspecified (principal); R11.0 Nausea; R10.9 Unspecified abdominal pain; R53.83 Other fatigue; Z20.822 Contact with and (suspected) exposure to COVID-19
CPT/HCPCS: 0241U-QW; 36415; 80053; 81003; 84703; 85025; 99284-25; J0131; Q0162

== ENCOUNTER 2024-07-18 20:01 | Emergency (ER) | payer OTHER ==
[2024-07-18 20:06] VITALS: BP 126/79; PULSE 72; RESP 18; TEMP 98.5; BMI 31.3
[2024-07-18] MEDS ORDERED: FLUTICASONE PROP 0.05% 16 GM NASAL SPRAY NS ONE (22:09)
[2024-07-18] MEDS ORDERED: METOCLOPRAMIDE HCL INJECTION 10 MG/2 ML VIAL ONE (22:41)
[2024-07-18] MEDS ORDERED: ACETAMINOPHEN INJECTION 100 ML ONE (22:41)
[2024-07-18] MEDS ORDERED: LORATADINE 10 MG TABLET ONE (22:41)
[2024-07-18 22:45] LABS: BASO % 0.3 % (0-2.0); EOS % 0.7 % (0-4.5); HEMOGLOBIN 11.4 GM/dL (10.7-15.3); LYMPH % 24.2 % (8-40); MCH 26.3 pg (25.7-33.7); MCHC 32.7 g/dl (32.0-36.0); MEAN CELL VOLUME 80.5 fl (80-96); MEAN PLT VOLUME 9.2 fl (7.5-11.1); MONO % 7.4 % (3.8-10.2); NEUT % 67.4 % (42.8-82.8); PLATELET COUNT 212 10^3/uL (134-434); RBC 4.35 M/mm3 (3.60-5.2); RDW 15.6 % (11.6-15.6); WHITE BLOOD COUNT 11.7 K/mm3 (4.0-10.0)
[2024-07-18] MEDS: ACETAMINOPHEN 1000 MG/100 ML BAG IVPB ONE (22:54)
[2024-07-18] MEDS: METOCLOPRAMIDE HCL INJECTION 10 MG/2 ML VIAL IVPUSH ONE (22:54)
[2024-07-18] MEDS: LORATADINE 10 MG TABLET PO ONE (22:54)
[2024-07-18] MEDS: SODIUM CHLORIDE 0.9% 1000 ML INFUS.BAG IV ONE (22:54)
[2024-07-18 23:13] LABS: POTASSIUM 4.2 mmol/L (3.5-5.1)
[2024-07-18 23:15] LABS: CALCIUM 9.6 mg/dL (8.5-10.1)
[2024-07-18 23:16] LABS: ALBUMIN 3.4 g/dl (3.4-5.0); BLOOD UREA NITROGEN 7.8 mg/dL (7-18)
[2024-07-18 23:19] LABS: CREATININE 0.6 mg/dL (0.55-1.3)
[2024-07-18 23:21] LABS: BILIRUBIN,TOTAL 0.3 mg/dL (0.2-1); TOT PROT 6.9 g/dl (6.4-8.2)
== END 2024-07-19 00:12 | disposition home or self-care (01) ==
LOC: JER 20:01 → JERFT 20:01 → JER 07-19 00:12
PROC: 3E033GC Introduction of Other Therapeutic Substance into Peripheral Vein, Percutaneous Approach (ICD-10-PCS; principal; 2024-07-18)
PROC: 3E033NZ Introduction of Analgesics, Hypnotics, Sedatives into Peripheral Vein, Percutaneous Approach (ICD-10-PCS; 2024-07-18)
DX: O99.352 Diseases of the nervous system complicating pregnancy, second trimester (principal); R51.9 Headache, unspecified; Z3A.17 17 weeks gestation of pregnancy; Z20.822 Contact with and (suspected) exposure to COVID-19
CPT/HCPCS: 0241U-QW; 36415; 76815; 80053; 85025; 99284-25; J0131